=== PATIENT | female | born 1985 | race Caucasian/White ===

== ENCOUNTER 2021-05-23 07:42 | Day surgery (SDC) | payer OTHER, MEDICAID, SELFPAY ==
[~2021-05-23] VITALS: Ht 167.6 cm; Wt 97.5 kg
[2021-05-23] MEDS ORDERED: MEPERIDINE 100 MG INJ. 100 MG/ML VIAL ONE (07:45)
[2021-05-23] MEDS ORDERED: MIDAZOLAM HCL 5 MG/5 ML VIAL ONE (07:46)
[2021-05-23 08:15] LABS: HCG,QUAL RESULT NEGATIVE (NEGATIVE)
[2021-05-23 13:08] VITALS: BP_SYST 97
== END 2021-05-23 11:30 | disposition home or self-care (01) ==
LOC: SDS 07:42 → SMU 07:43 → SDS 11:30
PROVIDERS: ATTEND Internal Medicine Gastroenterology
DX: K62.5 Hemorrhage of anus and rectum (principal); K64.9 Unspecified hemorrhoids; Z88.0 Allergy status to penicillin; Z88.1 Allergy status to other antibiotic agents; Z88.8 Allergy status to other drugs, medicaments and biological substances; Z90.89 Acquired absence of other organs; Z20.822 Contact with and (suspected) exposure to COVID-19; Z79.899 Other long term (current) drug therapy
CPT/HCPCS: 36415; 45378; 84703; 87426; 99152; 99153; G0378; J2175; J2250; U0003